=== PATIENT | female | born 1995 | race Caucasian/White ===

== ENCOUNTER → 2023-04-17 | Outpatient (CLI) | payer OTHER, SELFPAY ==
[2023-04-21 07:07] LABS: Chlamydia By Nucleic Acid AMP Negative (Negative); Gonococcus By Nucleic Acid AMP Negative (Negative)
[2023-04-23 12:09] LABS: HPV APTIMA, High Risk Negative (Negative)
== END | disposition home or self-care (01) ==
LOC: LABSPEC 14:53
PROVIDERS: PCP Physician Assistant; Referring Provider Registered Nurse; Visit Provider Registered Nurse
DX: N92.6 Irregular menstruation, unspecified (principal)
CPT/HCPCS: 87491; 87591; 87624; 88175; G0145

== ENCOUNTER → 2023-04-19 | Outpatient (CLI) | payer OTHER, SELFPAY ==
[2023-04-19 09:56] LABS: T4 Free Direct 0.88 ng/dL (0.76-1.46); Thyroid Stim Hormone (TSH) 2.42 uIU/mL (0.358-3.74)
== END | disposition home or self-care (01) ==
PROVIDERS: PCP Physician Assistant; Referring Provider Registered Nurse; Visit Provider Registered Nurse
DX: N92.6 Irregular menstruation, unspecified (principal)
CPT/HCPCS: 36415; 84439; 84443

== ENCOUNTER → 2023-05-07 | Outpatient (CLI) | payer OTHER, SELFPAY ==
[2023-05-07 11:37] LABS: Progesterone Level 14.61 ng/mL (See Comment)
== END | disposition home or self-care (01) ==
LOC: LAB 09:57
PROVIDERS: PCP Family Medicine; Referring Provider Registered Nurse; Visit Provider Registered Nurse
DX: N92.6 Irregular menstruation, unspecified (principal)
CPT/HCPCS: 36415; 84144

== ENCOUNTER → 2023-10-09 | Outpatient (CLI) | payer OTHER, SELFPAY ==
[2023-10-09 14:12] LABS: Absolute Lymphocyte Count 1.43 X10^3/uL (0.83-4.51); Absolute Neutrophil Count 7.2 X10^3/uL (2.0-7.7); Basophil# 0.07 X10^3/uL; Basophil% 0.8 % (0-1); Eosinophil# 0.06 X10^3/uL; Eosinophils% 0.6 % (0-5); Hematocrit 40.5 % (37-47); Hemoglobin 13.5 g/dL (12.0-15.0); Lymphocyte # 1.43 X10^3/ul (0.83-4.51); Lymphocyte % 15.4 % (19-41); Mean Corp Hgb Conc 33.3 g/dL (32-36); Mean Corpuscular Volume 87.1 fL (81-99); Mean Platelet Vol. 9.1 fl (6.2-12.0); Monocyte% 5.4 % (0-10); NRBC Flagged by Analyzer 0 % (0-5); Neutrophil % 77.4 % (47-70); Platelet Count 327 K/mm3 (150-450); RBC Distribution Width CV 12.4 % (11.6-14.6); RBC Distribution Width SD 39.2 fl (35.1-43.9); Red Blood Count 4.65 M/mm3 (4.2-5.4); White Blood Count 9.3 K/mm3 (4.4-11.0)
[2023-10-09 15:38] LABS: HIV - WCH Non-Reactive (Nonreactive); Hepatitis B Surface Antigen Non-Reactive (Nonreactive); Hepatitis C Antibody Non-Reactive (Nonreactive); Rubella IgG Reactive (Nonreactive); Syphilis Antibodies Non-reactive
--- OUTSIDE RECORDS SUMMARY | 2023-10-09 19:53 | XMS RPT_ITS | CCD ---
Author Name Unknown Address [address] [place] [address] Organization [facility] Care Team Providers Care Decal Transferrer Name Role Phone TAMARA TYLER Consulting Unavailable TAMARA TYLER Referring Unavailable VASSAS, DANIKA Admitting Unavailable VASSAS, DANIKA Primary Care Unavailable VASSAS, DANIKA Attending Unavailable PROVIDER, UNKNOWN Consulting Unavailable PROVIDER, UNKNOWN Consulting Unavailable PROVIDER, UNKNOWN Consulting Unavailable Problems Problem Classification Problem Date Documented Da te Episodic/Chronic Other complications of (3 sources) Missed ; Translations: [Missed ] Onset: 02-02-2023 Episodic Postabortion complications (1 source) Delayed or excessive hemorrhage following ectopic and molar ; Translations: [Delayed or excessive hemorrhage following ectopic and molar ] Onset: 02-02-2023 Episodic Results Test Name Value Interpretation Reference Range Facil ity Encounters Encounter Date Encounter Type Care Provider Facility Start: 02-02-2023 End: 02-03-2023 ambulatory TAMARA TYLER [facility] Procedures Date Procedure Procedure Detail Performing Clinician Start: 02-02-2023 Urinalysis TAMARA ARAIZA Payers Date Payer Category Payer Unknown [id number] Unknown [id number] Summary Purpose Family History No Family History Records Found Advance Directives No Advanced Directives Records Found Additional Source Comments INFORMATION SOURCE (unrecogn ized section and content) FOR RECORDS PERTAINING TO PATIENTS WHO ARE OR HAVE BEEN ENROLLED IN A CHEMICAL DEPENDENCY/SUBSTANCEABUSE PROGRAM, SOME INFORMATION MAY BE OMITTED. This clinical summary was aggregated from multiple sources. Caution should be exercised in using it in the provision of clinical care. This summary normalizes information from multiple sources, and as a consequence, information in this document may materially change the coding, format and clinical context of patient data. In addition, data may be omitted in some cases. CLINICAL DECISIONS SHOULD BE BASED ON THE PRIMARY CLINICAL RECORDS. [facility]. provides no warranty or guarantee of the accuracy or completeness of information in this document.
[2023-10-13 10:07] LABS: Anti-Cardiolipin Ab, IgA, Qn < 9 APL U/mL (0-11); Anti-Cardiolipin Ab, IgG, Qn < 9 GPL U/mL (0-14); Anti-Cardiolipin Ab, IgM, Qn < 9 MPL U/mL (0-12); Beta-2-Glycoprotein I IgA <9 (0-25); Beta-2-Glycoprotein I IgG <9 (0-20); Beta-2-Glycoprotein I IgM <9 (0-32); Dilute Russell Viper Venom 27.1 sec (0.0-47.0); Interpretation Comment: (.); PTT-LA 36.2 sec (0.0-43.5); Thrombin Time 16.7 sec (0.0-23.0); dPT Confirm Ratio 0.89 Ratio (0.00-1.34)
[2023-10-14 05:07] LABS: Chlamydia By Nucleic Acid AMP Negative (Negative); Gonococcus By Nucleic Acid AMP Negative (Negative)
== END | disposition home or self-care (01) ==
PROVIDERS: PCP Family Medicine; Referring Provider Advanced Practice Midwife; Visit Provider Advanced Practice Midwife
DX: Z34.90 Encounter for supervision of normal pregnancy, unspecified, unspecified trimester (principal); N96 Recurrent pregnancy loss
CPT/HCPCS: 36415; 85025; 86146; 86147; 86703; 86762; 86780; 86803; 86850; 86900; 86901; 87086; 87088; 87340; 87491; 87591

== ENCOUNTER → 2024-01-09 | Outpatient (CLI) | payer SELFPAY, OTHER ==
--- NOTE | 2024-01-09 12:25 | US_ITS ---
STUDY: SECOND AND THIRD TRIMESTER OBSTETRICAL ULTRASOUND REASON FOR EXAM: Female, 28 years old anatomy US LMP: August 23, 2023. TECHNIQUE: Transabdominal and Transvaginal TECHNICAL QUALITY: Adequate. PRIOR ULTRASOUND: None. FINDINGS: There is a single intrauterine fetus. The fetus is in a cephalic presentation. There is demonstrated cardiac activity with a heart rate of 162 bpm. There is a normal amniotic fluid volume. The largest amniotic fluid pocket measures 6.2 cm x 4.6 cm. The amniotic fluid index (DANIELLE) is within normal limits. The placenta is anterior in location and is not low lying. There are Grade 1 placental changes. The cervix measures 6.2 cm in length. The adnexal regions are not visualized. BIOMETRY: BPD: 5.22 cm: 21 weeks, 6 days HC: 18.88 cm: 21 weeks, 1 days AC: 15.52 cm: 20 weeks, 5 days FL: 3.26 cm: 20 weeks, 1 days CI: 83.5% FL/BPD: 62.4% FL/HC: FL/AC: 21% HC/AC: 1.22 age by current US: 20 weeks, 6 days. LEDY by current US: May 22, 2024. Estimated weight: 368 grams, +/- 55 grams, 86 %. Age by LMP: 19 weeks, 6 days. LEDY by LMP: May 29, 2024. ANATOMY: Gender: Female Cranium: Normal lateral ventricles. There is evidence of a 4 mm choroid plexus cyst. Normal cerebellum. Normal cisterna magna. Normal face, nose and lips. Chest: Normal 4-chamber heart. Abdomen/Pelvis: Normal diaphragm. Normal stomach. Normal abdominal wall. Normal cord insertion. Normal 3 vessel cord. Minimal fullness of the renal calyceal system measuring 5 mm. Normal bladder. Spine: Normal cervical spine. Normal thoracic spine. Normal lumbar spine. Normal sacrum. Extremities: Normal bilateral upper extremities. Normal bilateral lower extremities. US/OB Anatomy w/ Transvaginal IMPRESSION: Single live intrauterine gestation with mean gestational age of 20 weeks and 6 days. 4 mm choroid plexus cyst. Minimal fullness of the renal pelves measuring 5 mm. Electronically Signed: Sukh Mcnulty MD at 15:28 EDT ,
== END | disposition home or self-care (01) ==
PROVIDERS: PCP Family Medicine; Visit Provider Advanced Practice Midwife
DX: O09.90 Supervision of high risk pregnancy, unspecified, unspecified trimester (principal); Z3A.00 Weeks of gestation of pregnancy not specified
CPT/HCPCS: 76805; 76817

== ENCOUNTER → 2024-03-03 | Outpatient (CLI) | payer OTHER, SELFPAY ==
[2024-03-03 07:58] LABS: Absolute Lymphocyte Count 1.42 X10^3/uL (0.83-4.51); Absolute Neutrophil Count 6.2 X10^3/uL (2.0-7.7); Basophil# 0.05 X10^3/uL; Basophil% 0.6 % (0-1); Eosinophil# 0.13 X10^3/uL; Eosinophils% 1.6 % (0-5); Hematocrit 33.9 % (37-47); Hemoglobin 11.3 g/dL (12.0-15.0); Lymphocyte # 1.42 X10^3/ul (0.83-4.51); Lymphocyte % 17.2 % (19-41); Mean Corp Hgb Conc 33.3 g/dL (32-36); Mean Corpuscular Hgb 29.7 pg (27.0-32.0); Mean Corpuscular Volume 89.2 fL (81-99); Mean Platelet Vol. 8.9 fl (6.2-12.0); Monocyte# 0.35 X10^3/uL; Monocyte% 4.2 % (0-10); NRBC Flagged by Analyzer 0 % (0-5); Neutrophil # 6.24 X10^3/uL (2.7-7.7); Neutrophil % 75.8 % (47-70); Platelet Count 268 K/mm3 (150-450); RBC Distribution Width CV 12.6 % (11.6-14.6); RBC Distribution Width SD 41.1 fl (35.1-43.9); White Blood Count 8.2 K/mm3 (4.4-11.0)
[2024-03-03 08:11] LABS: Glucose Challenge Gest 1H 50g 149 mg/dL (70-140)
[2024-03-03 08:54] LABS: HIV - WCH Non-Reactive (Nonreactive); Syphilis Antibodies Non-reactive
== END | disposition home or self-care (01) ==
LOC: PAVLAB 07:29
PROVIDERS: PCP Family Medicine; Visit Provider Obstetrics & Gynecology
DX: O09.92 Supervision of high risk pregnancy, unspecified, second trimester (principal); Z13.1 Encounter for screening for diabetes mellitus; Z3A.00 Weeks of gestation of pregnancy not specified
CPT/HCPCS: 36415; 82950; 85025; 86703; 86780

== ENCOUNTER → 2024-03-08 | Outpatient (CLI) | payer OTHER, SELFPAY ==
[2024-03-08 07:38] LABS: Bedside Glucose 84 mg/dL (74-106)
[2024-03-08 07:45] LABS: Glucose GTT-Gestation. Fasting 86 mg/dL (<105)
[2024-03-08 08:48] LABS: Glucose GTT-Gestational 1 Hr 180 mg/dL (<190)
[2024-03-08 09:52] LABS: Glucose GTT-Gestational 2 Hr 128 mg/dL (<165)
[2024-03-08 10:35] LABS: Glucose GTT-Gestational 3 Hr 84 L (<145)
== END | disposition home or self-care (01) ==
LOC: LAB 06:46
PROVIDERS: PCP Family Medicine; Referring Provider Obstetrics & Gynecology; Visit Provider Obstetrics & Gynecology
DX: Z13.1 Encounter for screening for diabetes mellitus (principal)
CPT/HCPCS: 36415; 82951; 82952; 82962

== ENCOUNTER → 2024-04-16 | Outpatient (CLI) | payer OTHER, SELFPAY ==
--- NOTE | 2024-04-16 09:50 | US_ITS ---
STUDY: SECOND AND THIRD TRIMESTER OBSTETRICAL ULTRASOUND REASON FOR EXAM: Female, 29 years old uterine size larger than dates LMP: August 23, 2023. TECHNIQUE: Transabdominal TECHNICAL QUALITY: Adequate. PRIOR ULTRASOUND: None. FINDINGS: There is a single intrauterine fetus. The fetus is in a cephalic presentation. There is demonstrated cardiac activity with a heart rate of 130 bpm. The largest amniotic fluid pocket measures 12.2 cm. The amniotic fluid index (DANIELLE) is 34.3 cm. The referring physician was notified. The placenta is anterior in location and is not low lying. There are Grade 1 placental changes. The cervix measures in length. The bilateral adnexal regions are normal. BIOMETRY: BPD: 9.02 cm: 36 weeks, 4 days HC: 32.01 cm: 36 weeks, 1 days AC: 32.65 cm: 36 weeks, 4 days FL: 6.37 cm: 32 weeks, 0 days CI: 82% FL/BPD: 71% FL/HC: 20% FL/AC: 20% HC/AC: 0.98 age by current US: 35 weeks, 4 days. LEDY by current US: May 17, 2020. Estimated weight: 2750 grams, +/- 412 grams, 90 %. age by prior US: 34 weeks, 6 days. LEDY by prior US: May 22, 2024. Age by LMP: 33 weeks, 6 days. LEDY by LMP: May 29, 2024. US/OB Limited With Biometrics IMPRESSION: Single live intrauterine gestation with a mean gestational age of 34 weeks and 6 days. The measurements obtained today following the normal expected range. Elevated amniotic fluid. The office has been notified. Electronically Signed: Sukh Mcnulty MD at 11:52 EDT ,
== END | disposition home or self-care (01) ==
LOC: US 09:44
PROVIDERS: Referring Provider Advanced Practice Midwife; Visit Provider Advanced Practice Midwife
DX: O99.810 Abnormal glucose complicating pregnancy (principal); Z3A.33 33 weeks gestation of pregnancy; O09.93 Supervision of high risk pregnancy, unspecified, third trimester
CPT/HCPCS: 76816

== ENCOUNTER 2024-04-20 16:07 | Outpatient (CLI) | payer SELFPAY, OTHER ==
--- NOTE | 2024-04-20 16:12 | US_ITS ---
STUDY: OBSTETRICAL ULTRASOUND - BIOPHYSICAL PROFILE REASON FOR EXAM: Female, 29 years old well being LMP: PRIOR ULTRASOUND: None. TECHNIQUE: Transabdominal TECHNICAL QUALITY: Adequate. FINDINGS: There is a single intrauterine fetus. The fetus is in a cephalic presentation. There is demonstrated cardiac activity with a heart rate of 136 bpm. There is a normal amniotic fluid volume. The largest amniotic fluid pocket measures 9.6 cm. The amniotic fluid index (DANIELLE) is 28.1 cm. which is slightly elevated for 34 weeks gestation of uncertain etiology or clinical significance. The placenta is anterior and not low-lying There are Grade 1 placental changes. Age by LMP: 34 weeks, 3 days. LEDY by LMP: May 29, 2024. BIOPHYSICAL PROFILE: Breathing Movements (FBM): 0 Gross Body Movements (GBM): 2 Tone (FT): 2 Amniotic Fluid Volume (AFV): 2 TOTAL SCORE: 6 / 8 US/Biophysical Prof W/O Non Stres IMPRESSION: Abnormal biophysical profile of 6/8 Mild polyhydramnios for stated age of uncertain clinical significance Referring physician was called with report by manufacturing engineering technologist Electronically Signed: Arley Encarnacion MD at 17:16 EDT ,
[2024-04-20 17:25] VITALS: BP 127/78; PULSE 64; RESP 16; TEMP 36.5
== END 2024-04-20 18:01 | disposition home or self-care (01) ==
LOC: US 17:09 → WP 17:11
PROVIDERS: Referring Provider Obstetrics & Gynecology; Visit Provider Obstetrics & Gynecology
DX: O26.849 Uterine size-date discrepancy, unspecified trimester (principal); O99.810 Abnormal glucose complicating pregnancy; O09.92 Supervision of high risk pregnancy, unspecified, second trimester; Z3A.00 Weeks of gestation of pregnancy not specified
CPT/HCPCS: 59025; 59050; 76819; 99221; G0378

== ENCOUNTER 2024-04-21 07:14 | Inpatient (IN) | payer SELFPAY, OTHER ==
[2024-04-21] VITALS (47 sets, daily range): BP systolic 108–142; BP diastolic 56–85; PULSE 68–117; RESP 15–20; TEMP 36.7–38.1; O2SAT 90–100; BMI 30.9
[2024-04-21] MEDS: Betamethasone/Betamethasone 30 MG/5 ML Vial 12 MG IM (08:02)
[2024-04-21] MEDS: Penicillin G Pot 5,000,000 UNITS in 0.9% Normal Saline (100mL MB+) 100 ML 150 UNITS IV (08:03)
[2024-04-21] MEDS: Lactated Ringers 1,000 ML 50 ML IV (08:04)
--- NOTE | 2024-04-21 08:16 | HP.PCM.OB_ITS ---
HPI - General General Date of Admission: 04/21/24 HPI Narrative HAMLET MEJIA, is a 29 Fy/o @ 34 weeks 4 days who presents to L&D grossly ruptured without contractions. She denies vaginal bleeding, cramping, or decreased movement. Her DANIELLE was 28 yesterday. Maternal Data Information LEDY Calculator Estimated Delivery Date Method Current WG Current Estimate 05/29/24 LMP (Certain) 34w 4d PFSH PFSH Medical History Choroid plexus cyst of fetus Seasonal allergies Hx of migraine headaches Home Medications ?Medication ?Instructions ?Recorded ?Last Taken ?Type aspirin 81 mg tablet,delayed 81 mg PO DAILY 10/03/23 Unknown History release coenzyme Q10 30 mg capsule (Co 30 mg PO DAILY 10/03/23 Unknown History Q-10) vitamins no.163-iron tab PO 10/03/23 Unknown History bis-gly 20 mg-folate no.10 1 mg tablet (PNV Tabs 20-1) Allergy/AdvReac Type Severity Reaction Status Date / Time No Known Allergies Allergy Verified 04/16/24 11:17 Family History Sister Congenital heart defect Grandmother Hypertension Maternal Thyroid disorder maternal, hyperthyroid Other Heart disease Surgical History [place] teeth extracted S/P dilatation and curettage Social History adopted: No household members: spouse current occupational status: unemployed pets and animals: No history of recent travel: No sexually active: Yes Smoking Status: Never smoker alcohol intake: never substance use type: does not use well-balanced diet: daily or most days caffeine: No eating out: 1-3 times/week during the past year weight has: remained stable what type of physical activity do you participate in: walking frequency: 3-4 times per week duration: 15-30 minutes/day amina/zoroastrianism: Christian seatbelt use: sometimes do you feel safe at home: Yes additional social history: [employer] History 3 Elective abortions Hx Para 0 Spontaneous abortions 2 Hx # Term Pregnancies Ectopic pregnancies Hx # Pregnancies Multiple births # of living children 0 Past Pregnancies Del. Date Name GA/Weeks Outcome Route Bth Weight Gen Labor Lgth Anesthesia Del Locatn Provider FOB 09/25/22 9 spontaneous 01/23/23 6 spontaneous Delivery Date: 01/23/23 Last Updated by: Tiffanie Noguera [facility] Visit Details Expected Delivery Route/Plan Labor Preferences- CB/BF classes: [] labor support person: [] labor intervention preferences: [] pain management options preferred: [] cut cord/dad catch: [] : [] PP control planned: [] discussed possible routes of delivery and associated risks: [] special requests: [] Plans Covid status: [] Flu vaccine: declined Tdap vaccine: [] Rhogam: [] LARC form signed: [] movement and labor precautions reviewed. Problem list reviewed and updated with the most current plan of care details and appropriate orders placed. Relevant counseling for the gestational age provided. Continue routine care and follow up unless otherwise noted in visit notes/problem list details OB Flowsheet Initial Weight: Not Recorded Date -?-?-?-?-?-?-?-?-?-?-?-?- EGA Weight BP Urine Prot -?-?-?-?-?-?-?-?-?--?-?-?- Glucose FHR FuHt Pres Dilation -?-?-?-?-?-?-?-?-?-?-?-?- Effaced St Visit Note 10/09/23 -?-?-?-?-?-?-?-?-?-?-?-?- 6w 5d 143 lb 115/76 -?-?-?-?-?-?-?-?-?-?-?-?- 158 -?-?-?-?-?-?-?-?-?-?-?-?- kw-CRL cons with dates. 6.1mm. Hx 2 SAB. APL panel ordered. RTO in 2 weeks for heart beat check. 10/21/23 -?-?-?-?-?-?-?-?-?-?-?-?- 8w 3d 141 lb 121/77 Negative -?-?-?-?-?-?-?-?-?-?-?-?- Negative 195 -?-?-?-?-?-?-?-?-?-?-?-?- Sm- had spotting over the weekend. 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 visualized on handheld US today. formal US ordered 12/09/23 -?-?-?-?-?-?-?-?-?-?-?-?- 15w 3d 147 lb 8 oz 112/64 Nega tive -?-?-?-?-?-?-?-?-?-?-?-?- Negative 163 -?-?-?-?-?-?-?-?-?-?-?-?- MH-No VB, crampi ng. Nausea improved. Occa headache:tylenol ok. 01/09/24 -?-?-?-?-?-?-?-?-?-?-?-?- 19w 6d 152 lb 6 oz 119/78 Nega tive -?-?-?-?-?-?-?-?-?-?-?-?- Negative 158 20 -?-?-?-?-?-?-?-?-?-?-?-?- KW- no vb/lof/ct x. possible flutters. US today 02/03/24 -?-?-?-?-?-?-?-?-?-?-?-?- 23w 3d 160 lb 109/70 Negative -?-?-?-?-?-?-?-?-?-?-?-?- Negative 160 23 -?-?-?-?-?-?-?-?-?-?-?-?- SM- no vb crampi ng egularly no lof good fm 03/03/24 -?-?-?-?-?-?-?-?-?-?-?-?- 27w 4d 162 lb 109/74 -?-?-?-?-?-?-?-?-?-?-?-?- 160 28 -?-?-?-?-?-?-?-?-?-?-?-?- SM- no vb lof go o dfm oreuglar ctx discussed glucose testing 03/17/24 -?-?-?-?-?-?-?-?-?-?-?-?- 29w 4d 166 lb 108/68 Negative -?-?-?-?-?-?-?-?-?-?-?-?- Negative 150 30 -?-?-?-?-?-?-?-?-?-?-?-?- SM- no vb lof go od fm no reuglar ctx SM- no vb lof good fm no reu glar ctx discussed tdap, to decide 04/01/24 -?-?-?-?-?-?-?-?-?-?-?-?- 31w 5d 169 lb 8 oz 118/73 Nega tive -?-?-?-?-?-?-?-?-?-?-?-?- Negative 142 32 -?-?-?-?-?-?-?-?-?-?-?-?- JV- declines tda p vaccine. no lof, vaginal bleeding, or dec fm. 04/13/24 -?-?-?-?-?-?-?-?-?-?-?-?- 33w 3d 174 lb 109/76 Negative -?-?-?-?-?-?-?-?-?-?-?-?- Negative 135 37 -?-?-?-?-?-?-?-?-?-?-?-?- KW- no vb/lof/ct x. good fm. growth us ordered 04/16/24 -?-?-?-?-?-?-?-?-?-?-?-?- 33w 6d 176 lb 2 oz Negative -?-?-?-?-?-?-?-?-?-?-?-?- Negative -?-?-?-?-?-?-?-?-?-?-?-?- SM- NST done fht baseline 130 moderate variability reactive no decels no regular ctx some irritability, done because of polyhydramnios diagnosed on ultrasound today discussed with patient repeat US next week and will reorder 3 hour GTT if increasing DANIELLE recommend MFM consult ROS Constitutional Constitutional: Denies change in weight, fatigue, fever(s), headache(s), poor appetite or weakness Eyes Eyes: Denies blurry vision, change in vision, seeing flashes or spots in vision ENT HEENT: Denies dizziness, headache(s), loss taste/smell or sore throat Cardiovascular Cardiovascular: Denies chest pain, dizziness, dyspnea, irregular heart rhythm, leg edema, palpitations, rapid heart rate or vomiting Respiratory/Chest Respiratory/Chest: Denies chest tightness, cough, dyspnea or breast pain Gastrointestinal Gastrointestinal: Denies abdominal pain, anorexia, constipation, cramping, diarrhea, hemorrhoids, vomiting or weight changes Genitourinary Genitourinary: Denies dysuria, flank pain, genital lesions, genital pain, urinary frequency or urinary urgency Musculoskeletal Musculoskeletal: Denies back pain, difficulty walking, joint pain, limited range of motion, muscle cramps or numbness Integumentary Integumentary: Denies lesions or unusual bruising Neurologic Neurologic: Denies abnormal movements, abnormal speech, dizziness, numbness, seizure-like activity or syncope Psychiatric Psychiatric: Denies anxiety, behavioral changes, change in appetite, change in libido, cognitive impairment, confusion, depression, difficulty concentrating, hallucinations or suicidal thoughts Endocrine Endocrinology: Denies excessive sweating, polydipsia or polyuria Hematologic/Lymphatic Hematologic/Lymphatic: Denies easy bleeding, easy bruising or lymphadenopathy Allergic/Immunologic Allergic/Immunologic: Denies itchy eyes, lip swelling, seasonal rhinorrhea, rhinitis, throat swelling, tongue swelling, eczemia, wheezing or asthma Vital Signs Vital Signs Vital Signs: 04/21/24 07:19 04/21/24 07:19 04/21/24 07:20 Temperature Temperature Source Pulse Rate 103 H Respiratory Rate Blood Pressure 130/80 H BP Systolic 130 BP Diastolic 80 Pulse Ox 97 04/21/24 07:20 04/21/24 07:20 04/21/24 07:20 Temperature Temperature Source Temporal Pulse Rate 111 H Respiratory Rate 15 Blood Pressure BP Systolic BP Diastolic Pulse Ox 04/21/24 07:20 04/21/24 07:28 04/21/24 07:28 Temperature 99.0 F Temperature Source Pulse Rate 82 Respiratory Rate Blood Pressure BP Systolic BP Diastolic Pulse Ox 96 04/21/24 07:33 04/21/24 07:33 04/21/24 07:38 Temperature Temperature Source Pulse Rate 86 73 Respiratory Rate Blood Pressure BP Systolic BP Diastolic Pulse Ox 97 04/21/24 07:38 04/21/24 07:43 04/21/24 07:43 Temperature Temperature Source Pulse Rate 82 Respiratory Rate Blood Pressure BP Systolic BP Diastolic Pulse Ox 97 98 04/21/24 07:48 04/21/24 07:48 Temperature Temperature Source Pulse Rate 79 Respiratory Rate Blood Pressure BP Systolic BP Diastolic Pulse Ox 98 Physical Exam Const alert, oriented x3, no apparent distress and healthy appearing General Appearance: cooperative; Negative for anxious HEENT normocephalic Face and Sinus: normal facial exam Eyes EOMs intact bilaterally and no scleral icterus General Eye: normal appearance of both eyes Neck full ROM and supple Lymph Lymphatic: no lymphadenopathy noted Chest Chest: abnormal inspection of the chest Resp normal respiratory effort Effort and Inspection: able to speak in complete sentences Cardio regular rate GI soft to palpation and non-tender Inspection: gravid Palpation: soft; Negative for tender external exam normal Narrative: DANIELLE at bedside is now 7.9 and baby is in the vertex position. Speculum Exam - Cervix: other cx 4/80/-4 Bimanual Exam - Vag & Uterus: other Amniotic Fluid: clear amniotic fluid and ROM+plus Back/Spine no CVA tenderness Extremity normal to inspection, full ROM and no clubbing, cyanosis or edema General Extremity: Negative for calf tenderness or edema Skin Lesions: no lesions Rashes: no rashes Psych mental status grossly normal Labs Labs Labs: Blood Type A POSITIVE Antibody Screen NEGATIVE Hct 33.9 % (37-47) L Hgb 11.4 g/dL (12.0-15.0) L Obstetrics Ultrasound Syphilis Total Ab Non-reactive Rubella IgG Antibody Reactive (Nonreactive) Hep Bs Antigen Non-Reactive (Nonreactive) Hepatitis C Antibody Non-Reactive (Nonreactive) Chlamydia DNA (SHANNON) Negative (Negative) N.gonorrhoeae DNA (SHANNON) Negative (Negative) HIV 1&2 Antibody Non-Reactive (Nonreactive) Glucose 1 Hr 50 gm 149 mg/dL (70-140) H Gest Glucose Tolerance MG/DL Assessment & Plan (1) Polyhydramnios affecting : COMMENT: DANIELLE 34, will repeat 3 hr GCT and if increasing consider MFM consult. (2) Abnormal glucose affecting : COMMENT: 3 hour gtt ordered, normal 3 hour (3) Choroid plexus cyst of fetus: COMMENT: declines genetic screening (4) Supervision of high-risk : QUALIFIERS: Trimester: second trimester Qualified Code(s): O09.92 - Supervision of high risk , unspecified, second trimester COMMENT: PRR,, LEDY 05/29/24, girl Saran (5) : COMMENT: normal anatomy, declines genetic & carrier testing and AFP. (6) History of recurrent miscarriages: (7) premature rupture of membranes (PPROM) with unknown onset of labor: PLAN: will start IV's, PCN, steroids, and collect a contraction monitor strip. if no onset of labor in the next 2 hours, will start pitocin gbs collected
[2024-04-21 08:21] LABS: Absolute Lymphocyte Count 1.32 X10^3/uL (0.83-4.51); Absolute Neutrophil Count 5.7 X10^3/uL (2.0-7.7); Basophil# 0.03 X10^3/uL; Basophil% 0.4 % (0-1); Eosinophils% 1.3 % (0-5); Hematocrit 33.9 % (37-47); Hemoglobin 11.4 g/dL (12.0-15.0); Lymphocyte # 1.32 X10^3/ul (0.83-4.51); Lymphocyte % 17.4 % (19-41); Mean Corp Hgb Conc 33.6 g/dL (32-36); Mean Corpuscular Hgb 28.9 pg (27.0-32.0); Mean Platelet Vol. 9.7 fl (6.2-12.0); Monocyte# 0.44 X10^3/uL; Monocyte% 5.8 % (0-10); NRBC Flagged by Analyzer 0 % (0-5); Neutrophil # 5.67 X10^3/uL (2.7-7.7); Neutrophil % 74.6 % (47-70); Platelet Count 255 K/mm3 (150-450); RBC Distribution Width CV 12.6 % (11.6-14.6); RBC Distribution Width SD 39.5 fl (35.1-43.9); Red Blood Count 3.94 M/mm3 (4.2-5.4); White Blood Count 7.6 K/mm3 (4.4-11.0)
[2024-04-21 09:17] LABS: Bedside Glucose 78 mg/dL (74-106)
[2024-04-21 09:50] LABS: Syphilis Antibodies Non-reactive
[2024-04-21 10:04] LABS: Bedside Glucose 83 mg/dL (74-106)
[2024-04-21] MEDS: Oxytocin 15 Units/NS 250ml 15 UNITS/250 ML IV.SOLN 2 UNITS IV (11:46)
[2024-04-21] MEDS: Penicillin G 3,000,000 Units 50 ML 100 UNITS IV (13:15)
[2024-04-21] MEDS: Lactated Ringers 1,000 ML 999 ML IV (14:25)
[2024-04-21] MEDS: fentaNYL-bupivacaine (epidural) 100 ML BAG EPIDURAL (15:28)
[2024-04-21] MEDS: Methylergonovine 0.2 MG/ML Ampul IM (17:54)
[2024-04-21] MEDS: Oxytocin 15 Units/NS 250ml 15 UNITS/250 ML IV.SOLN 83 UNITS IV (18:10)
--- NOTE | 2024-04-21 18:17 | OP.PCM_ITS ---
Assessment & Plan (1) premature rupture of membranes (PPROM) with unknown onset of labor: (2) Polyhydramnios affecting : COMMENT: DANIELLE 34, will repeat 3 hr GCT and if increasing consider MFM consult. (3) Abnormal glucose affecting : COMMENT: 3 hour gtt ordered, normal 3 hour (4) Supervision of high-risk : QUALIFIERS: Trimester: second trimester Qualified Code(s): O09.92 - Supervision of high risk , unspecified, second trimester COMMENT: PRR,, LEDY 05/29/24, girl Saran (5) : COMMENT: normal anatomy, declines genetic & carrier testing and AFP. (6) History of recurrent miscarriages: (7) Choroid plexus cyst of fetus: COMMENT: declines genetic screening Maternal Data Information LEDY Calculator Estimated Delivery Date Method Current WG Current Estimate 05/29/24 LMP (Certain) 34w 4d Final LEDY: 04/29/24 Final LEDY Source: LMP Gestational age: 34 weeks 4 days Doctor Who Attended Delivery: Damon Schultz Vaginal Delivery Maternal Presentation Maternal Presentation: Spontaneous Rupture of Membranes Type of Induction: Pitocin Operative Information Date of Procedure: 04/21/24 Pre-Operative Diagnosis: @ 34 weeks 4 days, pprom Post-Operative Diagnosis: @ 34 weeks 4 days, pprom Surgery / Procedure Performed: Spontaneous Vaginal Delivery Type of Anesthesia: Epidural Drain: Huff to straight drain Estimated Blood Loss: 400cc Time of Delivery: 17:47 Findings Description of Procedure: Patient began pushing and delivered the head in the NEREIDA presentation. The head was delivered atraumatically. a loose nuchal cord was reduced x 1. The anterior and posterior shoulders delivered without complication followed by the rest of the and the infant was placed on the maternal abdomen. Delayed cord clamping was employed for approximately 30 seconds. Cord was clamped and cut and gentle traction was applied to the cord and the placenta delivered spontaneously immediately following it was noted to be intact with three-vessel cord. The perineum and vagina were inspected and There was a 1st degree perineal laceration repaired with a 2-0 vicryl. A small periurethral laceration was noted and repaired as well. EBL was 100 cc. Patient and infant tolerated delivery well. The director of social work is with the baby giving respiratory support. baby Girl Magdoline scores to be determined. Presentation: Vertex Amniotic Membrane Rupture Type: Spontaneous Amniotic Fluid Description: Clear Placental Delivery Description: Spontaneous Placenta Disposition: [facility] Cord Vessel Description: 3 Vessels Cord Entanglement: Around neck x 1, loose A Gender: Female Delayed Cord Clamping: Yes Post Vaginal Delivery Medications Given After Delivery: IV Pitocin Episiotomy Description: None Laceration: None Complication Complications: None Multi Select Codes Urinary/Genital Urinary/Genital CPT Codes: 60212 Vaginal Delivery [facility]
--- NOTE | 2024-04-21 18:20 | DCINST_ITS ---
Discharge Instructions Diet Discharge Diet: No restrictions Activity Discharge Activity: Return to Normal Activity, May Not Drive (while taking narcotic pain medications.) and May Shower May resume sexual activity in: 4-6 weeks Dressing / Incision Call your doctor if your incision/area has: Continuous Slow Oozing, Sudden Increased Bleeding, Increased Pain/ Swelling, Increased Redness and Foul Smelling Discharge Follow Up Care Please Follow Up With: Eufemia Keith, When: Call [phone] to make an appointment with your doctor in 6 weeks. If you had elevated blood pressure or 4th degree laceration, you will need to be seen in 2 weeks. Test Results: Test results from this visit will be discussed in further detail at your follow- up appointment, if applicable. Discharge Plan Admission Admit Date/Time: 04/21/24 07:14 Attending Provider: Eufemia Keith Primary Care Provider: Luz Malik Discharge Orders/Prescriptions Prescriptions: No Action PNV Tabs 20-1 20 mg iron- 1 mg tablet 1 tab PO DAILY aspirin 81 mg tablet,delayed release (DR/EC) 81 mg PO DAILY [id number] oil 1,050 mg(300 mg -675 mg-75 mg) capsule 2 cap PO DAILY vitamin B complex Tablet 1 tab PO DAILY Referrals / Follow Up: Luz Malik PA [Primary Care Provider] -
[2024-04-22] VITALS: BP 118/59; PULSE 74; RESP 16; TEMP 36.7; O2SAT 100
[2024-04-22] MEDS: Acetaminophen 500 MG Tablet 1000 MG PO (02:43)
[2024-04-22 04:00] VITALS: BP 101/61; PULSE 61; RESP 16; TEMP 36.2; O2SAT 99
--- NOTE | 2024-04-22 06:53 | PCM.PN.OB ---
Subjective Subjective Patient doing well without complaints. Tolerating PO. Ambulating and voiding without difficulty. Feeding well. Denies chest pain, shortness of breath, calf pain/swelling, fevers, chills, lightheadedness. Objective Data Objective Data Vital Signs: Vital Signs Temp Pulse Resp BP Pulse Ox O2 Del Method 97.1 F L 61 16 101/61 99 Room Air 04/22/24 04:00 04/22/24 04:00 04/22/24 04:00 04/22/24 04:00 04/22/24 04:00 04/22/24 04:00 Oxygen Delivery Method Room Air Weight: 169 lb Body Mass Index (BMI) 30.9 Intake & Output: Intake and Output for Last 24 Hours 04/20/24 04/21/24 04/22/24 23:59 23:59 23:59 Intake Total 2655.00 / 2655.00 Output Total 2100 / 2100 Balance 555.00 / 555.00 Lab / Micro Data 04/21/24 08:00 Labs: Laboratory Results - last 24 hr 04/21/24 08:00: WBC 7.6, RBC 3.94 L, Hgb 11.4 L, Hct 33.9 L, MCV 86.0, MCH 28.9, MCHC 33.6, RDW Std Deviation 39.5, RDW Coeff of Nena 12.6, Plt Count 255, MPV 9.7, Immature Gran % (Auto) 0.500, Neut % (Auto) 74.6 H, Lymph % (Auto) 17.4 L, [place] % (Auto) 5.8, Eos % (Auto) 1.3, Baso % (Auto) 0.4, Absolute Neuts (auto) 5.7, Absolute Lymphs (auto) 1.32, Nucleated RBC % 0, Syphilis Total Ab Non-reactive, Blood Type A POSITIVE, Antibody Screen NEGATIVE 04/21/24 08:21: POC Glucose 78 04/21/24 09:40: POC Glucose 83 ROS Constitutional Constitutional: Denies chills, fatigue, fever(s), poor appetite or weakness Eyes Eyes: Denies blurry vision, change in vision, seeing flashes or spots in vision ENT HEENT: Denies dizziness, headache(s), loss taste/smell or sore throat Cardiovascular Cardiovascular: Denies chest pain, dizziness, dyspnea, irregular heart rhythm, palpitations or rapid heart rate Respiratory/Chest Respiratory/Chest: Denies chest tightness, cough, dyspnea or breast pain Gastrointestinal Gastrointestinal: Denies abdominal pain, constipation or vomiting Genitourinary Genitourinary: Denies dysuria or flank pain Musculoskeletal Musculoskeletal: Denies difficulty walking, joint pain, limited range of motion or numbness Neurologic Neurologic: Denies abnormal movements, abnormal speech, dizziness, numbness, seizure-like activity or syncope Psychiatric Psychiatric: Denies anxiety, behavioral changes, change in appetite, confusion, depression or suicidal thoughts Physical Exam Const alert, oriented x3 and no apparent distress General Appearance: cooperative and comfortable Resp normal respiratory effort Cardio regular rate GI normal to inspection, nondistended, normoactive bowel sounds GI Narrative: uterus is firm below umbilicus Palpation: soft Back/Spine no CVA tenderness and thoraco-lumbar ROM normal Extremity normal to inspection, no clubbing, cyanosis or edema, no calf tenderness and no pedal edema Psych mental status grossly normal, thought process normal, cooperative, affect normal, speech normal, activity/motor behavior normal, denies homicidal ideation and denies suicidal ideation Assessment & Plan (1) premature rupture of membranes (PPROM) with unknown onset of labor: (2) Polyhydramnios affecting : COMMENT: DANIELLE 34, will repeat 3 hr GCT and if increasing consider MFM consult. (3) Abnormal glucose affecting : COMMENT: 3 hour gtt ordered, normal 3 hour (4) Supervision of high-risk : QUALIFIERS: Trimester: second trimester Qualified Code(s): O09.92 - Supervision of high risk , unspecified, second trimester COMMENT: PRR,, LEDY 05/29/24, girl Saran (5) : COMMENT: normal anatomy, declines genetic & carrier testing and AFP. (6) History of recurrent miscarriages: (7) Choroid plexus cyst of fetus: COMMENT: declines genetic screening (8) Status post normal vaginal delivery: PLAN: Plan s/p PPD # 1 1. routine post delivery care 2. breast feeding- support given 3. rh positive 4. rubella immune 5. baby in nicu.
[2024-04-22] MEDS: Ibuprofen 600 MG Tablet PO ×3 (07:40→22:36)
[2024-04-22 07:49] VITALS: BP 130/83; PULSE 83; RESP 16; TEMP 36.3; O2SAT 100
[2024-04-22 13:00] VITALS: BP 110/78; PULSE 66; RESP 16; TEMP 36.4; O2SAT 100
[2024-04-22 16:40] VITALS: BP 111/84; PULSE 69; RESP 16; TEMP 36.4; O2SAT 98
[2024-04-22 21:59] VITALS: BP 120/69; PULSE 66; RESP 16; TEMP 36.4; O2SAT 98
[2024-04-23 03:58] VITALS: BP 122/87; PULSE 75; RESP 16; TEMP 36.4; O2SAT 98
--- NOTE | 2024-04-23 07:09 | PCM.PN.OB ---
Subjective Subjective Patient doing well without complaints. Tolerating PO. Ambulating and voiding without difficulty. feeding well. Denies chest pain, shortness of breath, calf pain/swelling, fevers, chills, lightheadedness. Objective Data Objective Data Vital Signs: Vital Signs Temp Pulse Resp BP Pulse Ox O2 Del Method 97.6 F L 75 16 122/87 H 98 Room Air 04/23/24 03:58 04/23/24 03:58 04/23/24 03:58 04/23/24 03:58 04/23/24 03:58 04/23/24 03:58 Oxygen Delivery Method Room Air Weight: 169 lb Body Mass Index (BMI) 30.9 Intake & Output: Intake and Output for Last 24 Hours 04/21/24 04/22/24 04/23/24 23:59 23:59 23:59 Intake Total 2655.00 / 2655.00 Output Total 2100 / 2100 Balance 555.00 / 555.00 Lab / Micro Data 04/21/24 08:00 ROS Constitutional Constitutional: Reports systems reviewed and no addt'l complaints, except as documented Cardiovascular Cardiovascular: Reports systems reviewed and no addt'l complaints, except as documented Respiratory/Chest Respiratory/Chest: Reports systems reviewed and no addt'l complaints, except as documented Gastrointestinal Gastrointestinal: Reports systems reviewed and no addt'l complaints, except as documented Physical Exam Const alert, oriented x3 and no apparent distress HEENT Head and Scalp: atraumatic Resp normal respiratory effort GI soft to palpation and non-tender Bimanual Exam - Vag & Uterus: uterus non-tender Uterus Palpation: uterus fundus firm (below Umbilicus) Assessment & Plan (1) Status post normal vaginal delivery: PLAN: Plan s/p PPD # 2 1. routine post delivery care 2. breast feeding- support given 3. rh positive 4. rubella immune
[2024-04-23 07:54] VITALS: BP 121/88; PULSE 110; RESP 16; TEMP 36.3; O2SAT 98
== END 2024-04-23 10:00 | disposition home or self-care (01) | DRG 806 ==
LOC: WPOUT 07:18 → WP 07:18
PROVIDERS: Admitting Provider Obstetrics & Gynecology; Referring Provider Obstetrics & Gynecology; Visit Provider Obstetrics & Gynecology
DX: O42.913 Preterm premature rupture of membranes, unspecified as to length of time between rupture and onset of labor, third trimester (principal); Z37.0 Single live birth; O99.354 Diseases of the nervous system complicating childbirth; G93.0 Cerebral cysts; O71.82 Other specified trauma to perineum and vulva; O70.0 First degree perineal laceration during delivery; Z79.82 Long term (current) use of aspirin; O69.81X0 Labor and delivery complicated by cord around neck, without compression, not applicable or unspecified; Z3A.34 34 weeks gestation of pregnancy; O40.3XX0 Polyhydramnios, third trimester, not applicable or unspecified; O26.23 Pregnancy care for patient with recurrent pregnancy loss, third trimester; O99.814 Abnormal glucose complicating childbirth
CPT/HCPCS: 59025; 59050; 82962; 85025; 86780; 86850; 86900; 86901; 99221; J7120; G0378; J0702

== ENCOUNTER → 2024-12-09 | Outpatient (CLI) | payer OTHER, SELFPAY | END | disposition home or self-care (01) | LOC: LABSPEC 16:51 | PROVIDERS: Referring Provider Obstetrics & Gynecology; Visit Provider Obstetrics & Gynecology | DX: O09.90 Supervision of high risk pregnancy, unspecified, unspecified trimester (principal); Z3A.00 Weeks of gestation of pregnancy not specified | CPT/HCPCS: 87086; 87491; 87591 ==

== ENCOUNTER → 2025-01-06 | Outpatient (CLI) | payer OTHER, SELFPAY ==
[2025-01-06 09:44] LABS: Absolute Lymphocyte Count 1.43 X10^3/uL (0.83-4.51); Absolute Neutrophil Count 4.9 X10^3/uL (2.0-7.7); Basophil# 0.04 X10^3/uL; Basophil% 0.6 % (0-1); Eosinophil# 0.22 X10^3/uL; Eosinophils% 3.1 % (0-5); Hematocrit 37.3 % (37-47); Hemoglobin 12.8 g/dL (12.0-15.0); Lymphocyte # 1.43 X10^3/ul (0.83-4.51); Lymphocyte % 20.3 % (19-41); Mean Corp Hgb Conc 34.3 g/dL (32-36); Mean Corpuscular Volume 87.6 fL (81-99); Mean Platelet Vol. 9.3 fl (6.2-12.0); Monocyte# 0.42 X10^3/uL; NRBC Flagged by Analyzer 0 % (0-5); Neutrophil % 69.4 % (47-70); Platelet Count 280 K/mm3 (150-450); RBC Distribution Width CV 13.3 % (11.6-14.6); RBC Distribution Width SD 42.2 fl (35.1-43.9); Red Blood Count 4.26 M/mm3 (4.2-5.4); White Blood Count 7.1 K/mm3 (4.4-11.0)
[2025-01-06 10:57] LABS: HIV Nonreactive (Nonreactive); Hepatitis B Surface Antigen Nonreactive (Nonreactive); Hepatitis C Antibody Nonreactive (Nonreactive); Rubella IgG REAC (Nonreactive); Syphilis Antibodies Nonreactive (Nonreactive)
== END | disposition home or self-care (01) ==
LOC: LAB 09:12
PROVIDERS: Referring Provider Obstetrics & Gynecology; Visit Provider Obstetrics & Gynecology
DX: O09.90 Supervision of high risk pregnancy, unspecified, unspecified trimester (principal); Z3A.00 Weeks of gestation of pregnancy not specified
CPT/HCPCS: 36415; 85025; 86703; 86762; 86780; 86803; 86850; 86900; 86901; 87340

== ENCOUNTER → 2025-02-02 | Outpatient (CLI) | payer SELFPAY, OTHER ==
--- NOTE | 2025-02-02 15:08 | US_ITS ---
PROCEDURE: OB ANATOMY W/ TRANSVAGINAL 02/02/2025 REASON FOR EXAM: ANATOMY SCAN TECHNIQUE: High resolution obstetric ultrasound performed using a 2D transducer. Standard views obtained, including biometry, anatomy survey, and Doppler studies. COMPARISON: None FINDINGS Number: 1 Position: Vertex Placental Position: Right lateral Placental Abnormalities: No evidence of previa. DIMENSIONS: Biparietal Diameter: 5.1 cm: 21 weeks and 3 days: 94 percentile/ Head Circumference: 6.66 cm: 21 weeks and 6 days: 99 percentile/18.84 cm: 21 weeks and 1 day: 88 percentile Abdominal Circumference: 16.55 cm: 21 weeks and 4 days: 89 percentile/ Femur Length: 3.18 cm: 19 weeks and 6 days: 39 percentile/ ESTIMATED WEIGHT: 389 g plus/-58 g ESTIMATED WEIGHT PERCENTILE (24+ weeks): 91 ESTIMATED GESTATIONAL AGE: Baseline: 20 weeks 0 days By Ultrasound: 21 weeks 0 days ESTIMATED DATE OF DELIVERY: Baseline: June 22, 2025 By Ultrasound: June 15, 2025 BIOPHYSICAL ASSESSMENT: Amniotic Fluid Volume: 4.1 cm Amniotic Fluid Index: Within normal limits. Cardiac Motion: 150 beats per minute (average) Trunk and Limb Motion: Present. MATERNAL ANATOMY: Adnexa: Neither maternal ovary is successfully identified. Cervical Length (if measured): 4.1 cm ANATOMY: Spine: Unremarkable Cranium: Unremarkable Cerebellum: Unremarkable Cisterna Magna: Unremarkable Cavum Septum Pellucidi: Unremarkable Lateral Ventricles: Unremarkable Choroid Plexus: Unremarkable Midline Falx: Unremarkable Nuchal Fold: Unremarkable Upper Lip: Unremarkable Heart: Unremarkable Stomach: Unremarkable Kidneys: Unremarkable Bladder: Unremarkable Umbilical Cord: Unremarkable Normal insertion. Extremities: Unremarkable US/OB Anatomy w/ Transvaginal IMPRESSION: Single live intrauterine gestation with a mean gestational age of 21 weeks. Reading Location: [facility]
== END | disposition home or self-care (01) ==
LOC: US 15:06
PROVIDERS: Referring Provider Obstetrics & Gynecology; Visit Provider Obstetrics & Gynecology
DX: O09.90 Supervision of high risk pregnancy, unspecified, unspecified trimester (principal); Z3A.00 Weeks of gestation of pregnancy not specified
CPT/HCPCS: 76805; 76817

== ENCOUNTER → 2025-03-30 | Outpatient (CLI) | payer OTHER, SELFPAY ==
[2025-03-30 12:16] LABS: Hematocrit 32.9 % (37-47); Hemoglobin 11.2 g/dL (12.0-15.0); Immature Granulocytes Count 0.020 X10^3/uL (0.0-0.0); Mean Corp Hgb Conc 34.0 g/dL (32-36); Mean Corpuscular Volume 88.9 fL (81-99); Mean Platelet Vol. 9.2 fl (6.2-12.0); NRBC Flagged by Analyzer 0 % (0-5); Platelet Count 241 K/mm3 (150-450); RBC Distribution Width CV 12.5 % (11.6-14.6); RBC Distribution Width SD 40.3 fl (35.1-43.9); Red Blood Count 3.70 M/mm3 (4.2-5.4); White Blood Count 5.8 K/mm3 (4.4-11.0)
[2025-03-30 13:18] LABS: Glucose Challenge Gest 1H 50g 104 mg/dL (70-140); HIV Nonreactive (Nonreactive); Syphilis Antibodies Nonreactive (Nonreactive)
== END | disposition home or self-care (01) ==
PROVIDERS: Nurse Practitioner Women's Health; Referring Provider Obstetrics & Gynecology; Visit Provider Obstetrics & Gynecology
DX: O09.92 Supervision of high risk pregnancy, unspecified, second trimester (principal); Z3A.00 Weeks of gestation of pregnancy not specified; Z13.1 Encounter for screening for diabetes mellitus
CPT/HCPCS: 36415; 82950; 85025; 86703; 86780

== ENCOUNTER → 2025-05-11 | Outpatient (CLI) | payer OTHER, SELFPAY ==
[2025-05-11 11:06] LABS: Hematocrit 33.5 % (37-47); Hemoglobin 11.1 g/dL (12.0-15.0); Immature Granulocytes Count 0.040 X10^3/uL (0.0-0.0); Mean Corp Hgb Conc 33.1 g/dL (32-36); Mean Corpuscular Volume 85.7 fL (81-99); Mean Platelet Vol. 9.3 fl (6.2-12.0); NRBC Flagged by Analyzer 0 % (0-5); Platelet Count 236 K/mm3 (150-450); RBC Distribution Width CV 13.1 % (11.6-14.6); RBC Distribution Width SD 39.5 fl (35.1-43.9); Red Blood Count 3.91 M/mm3 (4.2-5.4); White Blood Count 6.8 K/mm3 (4.4-11.0)
[2025-05-11 11:20] LABS: Creatinine, Urine (random) 42.20 mg/dL (28.00-217.00); Protein, Urine (Random) 9.8 mg/dL (0.0-12.0); Protein:Creat Ratio 232 mg/g CRE (0-200)
[2025-05-11 11:25] LABS: AST(SGOT) 19 U/L (<=31); Alanine Aminotransfer ALT/SGPT 11 U/L (<=34); Albumin, Serum 3.7 g/dL (3.5-5.0); Alkaline Phosphatase 89 U/L (35-104); Anion Gap 11 (5-15); BUN 5 mg/dL (4-19); BUN/Creat Ratio 11.2 RATIO (10-20); Calcium,Total 8.8 mg/dL (7.6-11.0); Carbon Dioxide 20.9 mmol/L (21.0-32.0); Chloride 106 mmol/L (98-108); Globulin 2.8 g/dL (2.2-4.2); Glucose 86 mg/dL (70-99); Potassium 3.5 mmol/L (3.3-5.1)
== END | disposition home or self-care (01) ==
PROVIDERS: Referring Provider Obstetrics & Gynecology; Visit Provider Obstetrics & Gynecology
DX: O09.93 Supervision of high risk pregnancy, unspecified, third trimester (principal); R11.2 Nausea with vomiting, unspecified; Z3A.00 Weeks of gestation of pregnancy not specified
CPT/HCPCS: 36415; 80053; 82570; 84156; 85025

== ENCOUNTER 2025-06-08 14:40 | Outpatient (CLI) | payer OTHER, SELFPAY ==
--- NOTE | 2025-06-08 14:49 | US_ITS ---
PROCEDURE: OB LIMITED WITH BIOMETRICS 06/08/2025 REASON FOR EXAM: MEASURING SMALL TECHNIQUE: Procedure Code: USOBGROWTH Modality: US Procedure: OB LIMITED WITH BIOMETRICS COMPARISON: None FINDINGS Cephalic position with cardiac activity of 123 beats per minute. Maximum vertical pocket of 6 cm and DANIELLE 16.2 cm. Placenta is anterior position with grade 1. BPD of 9.2, OFD of the 11.7, HC of 33.9, AC of 34.7, and FL of 7.4 cm corresponding with average gestational age of 38 weeks and 1 day with LEDY of 06/21/2025. Biometric measurement are within normal limits. Estimated weight of 3477g (71 percentile). US/OB Limited With Biometrics IMPRESSION: Average sonographic gestational age of 38 weeks and 1 day with LEDY of . No acute sonographic abnormalities. Reading Location: [id number]
--- NOTE | 2025-06-08 14:49 | US_ITS ---
PROCEDURE: OB LIMITED WITH BIOMETRICS 06/08/2025 REASON FOR EXAM: MEASURING SMALL TECHNIQUE: Procedure Code: USOBGROWTH Modality: US Procedure: OB LIMITED WITH BIOMETRICS COMPARISON: None FINDINGS Cephalic position with cardiac activity of 123 beats per minute. Maximum vertical pocket of 6 cm and DANIELLE 16.2 cm. Placenta is anterior position with grade 1. BPD of 9.2, OFD of the 11.7, HC of 33.9, AC of 34.7, and FL of 7.4 cm corresponding with average gestational age of 38 weeks and 1 day with LEDY of 06/21/2025. Biometric measurement are within normal limits. Estimated weight of 3477g (71 percentile). US/OB Limited With Biometrics IMPRESSION: Average sonographic gestational age of 38 weeks and 1 day with LEDY of . No acute sonographic abnormalities. Reading Location: [id number]
[2025-06-08 14:50] VITALS: BMI 31.4
[2025-06-08 14:59] VITALS: BP 117/67; PULSE 80; RESP 12; TEMP 36.2; O2SAT 99
--- NOTE | 2025-06-08 22:20 | OB.TRI.PN ---
Progress Notes Date of Service: 06/08/25 Progress Note: Patient presents for triage evaluation secondary to low fundal height decresead feta lmovement FHT: 140 Moderate variability reactive no decelerations category I tracing [place]: no regular Contractions Assessment and plan: 38 weeks dec movement uterine size date discrepancy Reactive NST nl growth us, reassuring maternal and status patient discharged to home to follow-up as shceduled. See problem list details for additional plan information. Charges/Coding Procedures Urinary/Genital 52xxx-59xxx: 58645-93 non-stress test Interp Assessment & Plan (1) Uterine size-date discrepancy, third trimester: COMMENT: nl growth us 06/08 (2) Supervision of high-risk : QUALIFIERS: Trimester: third trimester Qualified Code(s): O09.93 - Supervision of high risk , unspecified, third trimester COMMENT: [id number], LEDY 06/22/25, PC: Kyle, : Saran (3) : QUALIFIERS: Weeks of gestation: 38 weeks Qualified Code(s): Z3A.38 - 38 weeks gestation of COMMENT: Declined genetic/carrier testing/AFP. Nl anatomy US (4) History of miscarriage, currently : COMMENT: x2 (5) History of delivery, currently : COMMENT: 35weeks- likely due to polyhydramnios
--- NOTE | 2025-06-08 22:20 | OB.TRI.PN ---
Progress Notes Date of Service: 06/08/25 Progress Note: Patient presents for triage evaluation secondary to low fundal height decresead feta lmovement FHT: 140 Moderate variability reactive no decelerations category I tracing [place]: no regular Contractions Assessment and plan: 38 weeks dec movement uterine size date discrepancy Reactive NST nl growth us, reassuring maternal and status patient discharged to home to follow-up as shceduled. See problem list details for additional plan information. Charges/Coding Procedures Urinary/Genital 52xxx-59xxx: 80209-88 non-stress test Interp Assessment & Plan (1) Uterine size-date discrepancy, third trimester: COMMENT: nl growth us 06/08 (2) Supervision of high-risk : QUALIFIERS: Trimester: third trimester Qualified Code(s): O09.93 - Supervision of high risk , unspecified, third trimester COMMENT: [id number], LEDY 06/22/25, PC: Kyle, : Saran (3) : QUALIFIERS: Weeks of gestation: 38 weeks Qualified Code(s): Z3A.38 - 38 weeks gestation of COMMENT: Declined genetic/carrier testing/AFP. Nl anatomy US (4) History of miscarriage, currently : COMMENT: x2 (5) History of delivery, currently : COMMENT: 35weeks- likely due to polyhydramnios
== END 2025-06-08 16:05 | disposition home or self-care (01) ==
LOC: WPOUT 14:42 → WP 14:43
PROVIDERS: Referring Provider Obstetrics & Gynecology; Visit Provider Obstetrics & Gynecology
DX: O36.8130 Decreased fetal movements, third trimester, not applicable or unspecified (principal); O26.843 Uterine size-date discrepancy, third trimester; Z3A.38 38 weeks gestation of pregnancy
CPT/HCPCS: 59025; 59050; 76816; 99221; G0378

== ENCOUNTER 2025-06-13 12:27 | Inpatient (IN) | payer SELFPAY, OTHER ==
[2025-06-13] VITALS (39 sets, daily range): BP systolic 66–133; BP diastolic 32–82; PULSE 60–116; RESP 16–20; TEMP 36.7–37.4; O2SAT 16–100; BMI 31.1
[2025-06-13] MEDS: Lactated Ringers 1,000 ML 50 ML IV (12:54)
[2025-06-13 13:08] LABS: Hematocrit 37.0 % (37-47); Hemoglobin 12.1 g/dL (12.0-15.0); Immature Granulocytes Count 0.050 X10^3/uL (0.0-0.0); Mean Corp Hgb Conc 32.7 g/dL (32-36); Mean Corpuscular Volume 83.1 fL (81-99); Mean Platelet Vol. 9.2 fl (6.2-12.0); NRBC Flagged by Analyzer 0 % (0-5); Platelet Count 269 K/mm3 (150-450); RBC Distribution Width CV 13.6 % (11.6-14.6); RBC Distribution Width SD 40.9 fl (35.1-43.9); Red Blood Count 4.45 M/mm3 (4.2-5.4); White Blood Count 12.2 K/mm3 (4.4-11.0)
[2025-06-13 13:39] LABS: Syphilis Antibodies Nonreactive (Nonreactive)
[2025-06-13] MEDS: Lactated Ringers 1,000 ML 200 ML IV (14:15)
[2025-06-13] MEDS: fentaNYL-bupivacaine (epidural) 100 ML BAG EPIDURAL (14:30)
[2025-06-13] MEDS: Oxytocin 15 Units/NS 250ml 15 UNITS/250 ML IV.SOLN 334 UNITS IV (15:56)
[2025-06-13] MEDS: Oxytocin 15 Units/NS 250ml 15 UNITS/250 ML IV.SOLN 83 UNITS IV (16:30)
[2025-06-13] MEDS: Cefazolin 2 GM in 0.9% Normal Saline (100mL Bag) 100 ML IV (20:00)
[2025-06-14 00:30] VITALS: BP 113/72; PULSE 88; RESP 16; TEMP 36.4; O2SAT 98
[2025-06-14 04:15] VITALS: BP 99/66; PULSE 76; RESP 16; TEMP 36.1; O2SAT 99
[2025-06-14 06:22] LABS: Hematocrit 29.7 % (37-47); Hemoglobin 9.7 g/dL (12.0-15.0); Immature Granulocytes Count 0.100 X10^3/uL (0.0-0.0); Mean Corp Hgb Conc 32.7 g/dL (32-36); Mean Corpuscular Volume 83.0 fL (81-99); Mean Platelet Vol. 9.1 fl (6.2-12.0); NRBC Flagged by Analyzer 0 % (0-5); Platelet Count 196 K/mm3 (150-450); RBC Distribution Width CV 13.5 % (11.6-14.6); RBC Distribution Width SD 41.1 fl (35.1-43.9); Red Blood Count 3.58 M/mm3 (4.2-5.4); White Blood Count 15.3 K/mm3 (4.4-11.0)
[2025-06-14 08:50] VITALS: BP 112/70; PULSE 79; RESP 16; TEMP 36.4; O2SAT 95
[2025-06-14 13:00] VITALS: BP 117/86; PULSE 63; RESP 16; TEMP 36.3; O2SAT 99
[2025-06-14 16:00] VITALS: BP 105/74; PULSE 67; RESP 16; TEMP 36.3; O2SAT 98
[2025-06-14 19:54] VITALS: BP 107/65; PULSE 66; RESP 16; TEMP 36.3; O2SAT 98
[2025-06-15 01:41] VITALS: BP 107/65; PULSE 65; RESP 16; TEMP 36.6; O2SAT 98
[2025-06-15 07:45] VITALS: BP 101/75; PULSE 63; RESP 16; TEMP 36.6; O2SAT 99
== END 2025-06-15 10:10 | disposition home or self-care (01) | DRG 807 ==
LOC: WPOUT 15:52 → WP 15:53
PROVIDERS: Admitting Provider Advanced Practice Midwife; Referring Provider Advanced Practice Midwife; Visit Provider Advanced Practice Midwife
DX: O26.843 Uterine size-date discrepancy, third trimester (principal); Z37.0 Single live birth; O26.23 Pregnancy care for patient with recurrent pregnancy loss, third trimester; O70.1 Second degree perineal laceration during delivery; O99.824 Streptococcus B carrier state complicating childbirth; O87.4 Varicose veins of lower extremity in the puerperium; Z3A.38 38 weeks gestation of pregnancy; Z30.8 Encounter for other contraceptive management; Z79.82 Long term (current) use of aspirin; Z87.59 Personal history of other complications of pregnancy, childbirth and the puerperium
CPT/HCPCS: 59025; 59050; 85025; 86780; 86850; 86900; 86901; 99221; G0378